=== PATIENT | male | born 1990 | race Caucasian/White ===

== ENCOUNTER 2022-04-19 16:47 | Emergency (ER) | payer MEDICAID, SELFPAY ==
[2022-04-19 16:49] VITALS: BP 113/62; PULSE 73; RESP 18; TEMP 36.2; O2SAT 100; BMI 24.9
[2022-04-19 17:00] VITALS: BP 118/58; PULSE 70; O2SAT 100
--- NOTE | 2022-04-19 17:03 | PC.NURSE ---
ED MD AT BEDSIDE
--- NOTE | 2022-04-19 17:24 | HMH.EDWNDL ---
ED Disposition Clinical Impression: Laceration of left forearm Qualifiers: Encounter type: initial encounter Qualified Code(s): S51.812A - Laceration without foreign body of left forearm, initial encounter Disposition: Home, Self-Care Condition on Discharge: Good Instructions: DI for Laceration Repair Referrals: Provider,Referral, [Primary Care Provider] - - Critical Care Critical Care Time: No Attestation: On 04/19/22, the high probability of a clinically significant, sudden or life threatening deterioration of the following system(s) required my full and direct attention, intervention and personal management. The time I documented below is in addition to time spent performing reported procedures but includes the following listed in this critical care notation. Medical Decision Making - Medical Records Medical records reviewed: Yes: I reviewed the patient's medical records. - Jeffrey Inquiry Pt receiving controlled substance: No Vital Signs: 04/19/22 16:49 Temperature 97.2 F L Temperature Source Oral Pulse Rate [Radial] 73 Respiratory Rate 18 Blood Pressure [Right Arm] 113/62 Blood Pressure Mean [Right Arm] 79 Blood Pressure Source [Right Arm] Automatic Cuff Blood Pressure Position [Right Arm] Sitting 02 Sat by Pulse Oximetry 100 Oxygen Delivery Method Room Air - Reevaluation(s) Time: 17:26 Reevaluation #1: Patient tolerated procedure well. Needs suture removal in 10 days. He was given wound care instructions as well as strict return precautions. Verbalized understanding. Medical Decision Narrative: 31-year-old male presenting with laceration to left forearm. Patient is up-to-date on tetanus. There is no evidence of tendon or vascular involvement. Patient will require suture repair. Wound/Laceration HPI - General Chief Complaint: Wound/Laceration Stated Complaint: AO 04/19@1545@Home Lac L arm Time Seen by Provider: 04/19/22 16:55 Mode of Arrival: Ambulatory Limitations: No Limitations Description of Symptoms (Recalled from ER Triage Doc. by RN): LACERATION TO LEFT FOREARM FROM CHAINSAW - History of Present Illness HPI narrative: 31-year-old male presented to the emergency department laceration to left forearm while using a chainsaw. This occurred just prior to arrival. Patient states that he lost control he kicked back and hit the left forearm. He has a mild laceration to the posterior aspect of the left forearm. No active bleeding at this time. Patient is full range of motion. He is up-to-date on tetanus. No other injuries were sustained. - Related Data Allergies Allergy/AdvReac Type Severity Reaction Status Date / Time Penicillins Allergy Verified 04/19/22 17:05 [facility] History - Hepatitis A Screen Attestation statement:: This patient has been screened for Hepatitis A risk factors. I have reviewed the patient's past medical history: Yes ROS Obtained: Yes All systems reviewed & no additional complaints - Constitutional Constitutional: Denies chills, Denies fever(s) - Cardiovascular Cardiovascular: Denies chest pain - Respiratory Respiratory: Denies dyspnea - Musculoskeletal Musculoskeletal: Reports other (Laceration to left forearm) - Integumentary/Breasts Skin/Breast: Denies rash - Neurologic Neurologic: Denies headache(s) Physical Exam - General General appearance: alert, in no apparent distress - Respiratory Respiratory exam: Present: normal lung sounds bilaterally. Absent: respiratory distress - Cardiovascular Cardiovascular exam: Present: regular rate, normal rhythm - Expanded Upper Extremity Exam Left Comment: Patient has 2 lacerations to the posterior aspect of the left forearm, one is a flap. Superficial in nature. The patient is full range of motion at the elbow, wrist and fingers. Compartment is soft. Neurovascular intact. - Neurological Exam Neurological exam: Present: alert, oriented X3, normal gait. Absent
[2022-04-19 17:39] VITALS: BP 118/58; PULSE 69; RESP 20; TEMP 36.2; O2SAT 100
== END 2022-04-19 17:41 | disposition home or self-care (01) ==
PROVIDERS: Emergency Provider Emergency Medicine
DX: S51.812A Laceration without foreign body of left forearm, initial encounter (principal); W29.3XXA Contact with powered garden and outdoor hand tools and machinery, initial encounter
CPT/HCPCS: 12002; 99282

== ENCOUNTER 2022-04-29 14:53 | Emergency (ER) | payer MEDICAID, SELFPAY ==
[2022-04-29 16:52] VITALS: BP 130/80; PULSE 77; RESP 18; TEMP 36.7; O2SAT 98; BMI 23.5
[2022-04-29 16:53] VITALS: BP 130/80; PULSE 77; RESP 18; TEMP 36.7; O2SAT 98
== END 2022-04-29 16:54 | disposition home or self-care (01) ==
PROVIDERS: Emergency Provider Nurse Practitioner
DX: Z48.02 Encounter for removal of sutures (principal)

== ENCOUNTER 2022-05-02 10:55 | Emergency (ER) | payer MEDICAID, SELFPAY ==
[2022-05-02 11:47] VITALS: BP 110/73; PULSE 60; RESP 15; TEMP 36.8; O2SAT 100; BMI 23.5
[2022-05-02 11:48] VITALS: BP 110/73; PULSE 60; RESP 15; TEMP 36.8
== END 2022-05-02 11:49 | disposition home or self-care (01) ==
LOC: UTC 10:58
PROVIDERS: Emergency Provider Nurse Practitioner Family
DX: S51.812A Laceration without foreign body of left forearm, initial encounter (principal); Z48.02 Encounter for removal of sutures

== ENCOUNTER → 2022-05-07 07:54 | Outpatient (CLI) | payer MEDICAID, SELFPAY ==
[2022-05-07 11:47] LABS: PH,Semen 8.5 (7.3-8.3); Semen Viscosity Normal (Normal); WBCs,Semen Trace
[2022-05-07 11:48] LABS: 3Hr Motility Quality Good Progression (Mod-Rapid); 3Hr Sperm Motility 75 % (50-60); Motility Quality Rapid Progression (Mod-Rapid); Sperm Count 428 mil/mm3 (20-160); Sperm Morphology Normal (Normal); Sperm Motility 85 % (50-90)
== END ==
PROVIDERS: PCP Family Medicine; Visit Provider Nurse Practitioner Obstetrics & Gynecology
DX: Z31.69 Encounter for other general counseling and advice on procreation (principal)
CPT/HCPCS: 89320

== ENCOUNTER 2023-07-04 18:01 | Emergency (ER) | payer MEDICAID, SELFPAY ==
[2023-07-04 18:08] VITALS: BP 127/93; PULSE 82; RESP 15; TEMP 36.7; O2SAT 98; BMI 25.7
--- NOTE | 2023-07-04 18:26 | HMH.EDGENADL ---
Discharge Plan Disposition Patient Disposition: Home, Self-Care Prescriptions Prescriptions: New ibuprofen 800 mg tablet 800 mg PO TID PRN (Reason: pain) 7 Days Qty: 20 0RF cyclobenzaprine 5 mg tablet 5 mg PO TID PRN (Reason: muscle spasm) 5 Days Qty: 15 0RF Referrals Follow up/Referrals: Provider,Referral, [Primary Care Provider] - See instructions Activity Restrictions/Add. Instructions Additional Instructions/Restrictions: Return with any lower extremity paralysis, numbness between your legs, bowel or bladder incontinence, high fevers or other concerns as discussed. Clinical Impressions Clinical Impression: Lumbosacral strain Discharge ED Provider: Thuy Valente General Adult HPI General Chief complaint: PAIN Stated complaint: lower back pain Time Seen by Provider: 07/04/23 18:19 Mode of Arrival: Ambulatory Source of Information: Patient Limitations: No Limitations Description of Symptoms (Recalled from ER Triage Doc. by RN): 32 yo M presents to ED with c/o lower back pain. pt reports symptoms began today around 1300. he was moving equipment and felt a pain in his back. History of Present Illness HPI narrative: 32-year-old male here with lower back pain after a lifting injury at 1 PM today. States he was lifting heavy equipment and he felt a pop in right lower aspect of his back. It is localized without any radiation. No lower extremity paralysis no saddle anesthesia urinary bowel incontinence history of injection drug use within the last several years fevers cancer or any other concerns. Related Data Previous Rx's Medication Instructions Recorded cyclobenzaprine 5 mg tablet 5 mg PO TID PRN muscle spasm 5 07/04/23 days #15 tabs ibuprofen 800 mg tablet 800 mg PO TID PRN pain 7 days #20 07/04/23 tabs Allergies Allergy/AdvReac Type Severity Reaction Status Date / Time Penicillins Allergy Verified 07/04/23 18:21 [facility] Disclaimer: The information contained in this section may have been updated after the patient was seen, as this information can be updated by other users. Social History Smoking Status: Current every day smoker alcohol intake: never current occupational status: other Travel in the last 8 weeks: None ROS Obtained: Yes All systems reviewed & no additional complaints except as documented Physical Exam General General appearance: alert Respiratory Respiratory exam: Present normal lung sounds bilaterally; Absent respiratory distress Cardiovascular Cardiovascular exam: Present regular rate; Absent tachycardia Back Exam Back exam: Present full ROM and other (Normal lower extremity strength with flexion extension at the hip knee dorsiflexion plantarflexion of the ankle normal sensory exam in the lower extremity) Back 1 view image: 1. ttp Neurological Exam Neurological exam: Present alert and oriented X3 Medical Decision Making Jeffrey Inquiry Pt receiving controlled substance: No Vital Signs: 07/04/23 18:08 Temperature 98.0 F Temperature Source Oral Pulse Rate [Left Radial] 82 Respiratory Rate 15 Blood Pressure [Right Arm] 127/93 H Blood Pressure Mean [Right Arm] 104 02 Sat by Pulse Oximetry 98 Oxygen Delivery Method Room Air Orders (Tests/Meds): ED MEDICATIONS Generic Name Dose Route Start Last Admin Trade Name Freq PRN Reason Stop Dose Admin Acetaminophen 1,000 mg 07/04/23 18:24 Acetaminophen 500mg Tab PO 07/04/23 18:25 ONCE ONE Cyclobenzaprine HCl 5 mg 07/04/23 18:24 Cyclobenzaprine 10mg Tablet PO 07/04/23 18:25 ONCE ONE Ibuprofen 800 mg 07/04/23 18:24 Ibuprofen 400 Mg Tablet PO 07/04/23 18:25 ONCE ONE Medical Decision Narrative: 32-year-old male with lower back strain from historical standpoint with physical and history that is not consistent with any red flags to suggest any central nervous system or bony abnormality in the spine or spinal cord. Is not consistent with
[2023-07-04 18:32] VITALS: BP 135/84; PULSE 74; RESP 16; TEMP 36.7
--- NOTE | 2023-07-04 18:33 | PC.NURSE ---
PT HAD NO CLAIM ADJUSTER FOR FLEXERIL PT WAS JUST GONNA TAKE AFTER PICKING UP RX
== END 2023-07-04 18:34 | disposition home or self-care (01) ==
PROVIDERS: Emergency Provider Student in an Organized Health Care Education/Training Program
DX: S39.012A Strain of muscle, fascia and tendon of lower back, initial encounter (principal); F17.210 Nicotine dependence, cigarettes, uncomplicated; X50.0XXA Overexertion from strenuous movement or load, initial encounter
CPT/HCPCS: 99283

== ENCOUNTER 2024-11-14 18:13 | Emergency (ER) | payer SELFPAY ==
--- NOTE | 2024-11-14 18:15 | ED_ITS ---
<Statement entered by Jasmin Abarca DO - 11/14/24 22:46> I was consulted by the JERO, and we discussed the complexity of the problems being addressed. I approved the treatment and management plan for this patient's care in the emergency department, thus performing a substantive portion of the medical decision making. Jasmin Abarca DO Discharge Plan Disposition Chief Complaint: Eye Problems Prescriptions Prescriptions: No Action ibuprofen 800 mg tablet 800 mg PO TID PRN (Reason: pain) 7 Days Qty: 20 0RF cyclobenzaprine 5 mg tablet 5 mg PO TID PRN (Reason: muscle spasm) 5 Days Qty: 15 0RF Referrals Follow up/Referrals: Provider,Referral, MD [Primary Care Provider] - See instructions Activity Restrictions/Add. Instructions Additional Instructions/Restrictions: Please call the parole director/eye doctor at [phone] to follow-up in the clinic in the upcoming days, would recommend follow-up within 48 hours, utilize your ophthalmic ointment 4 times a day for the next 3 to 5 days or until follow-up. Return to the emergency department with any worsening signs or symptoms, or any decreased vision blurry vision. Clinical Impressions Clinical Impression: Corneal abrasion, left Instructions Patient Instructions: DI for Corneal Abrasion Print Language Print Language: Dominican Discharge ED Provider: Jasmin Abarca General Adult HPI General Chief complaint: Eye Problems Stated complaint: LT eye irritaion Time Seen by Provider: 11/14/24 18:15 Mode of Arrival: Ambulatory Source of Information: Patient Limitations: No Limitations History of Present Illness HPI narrative: 33-year-old male presents to the emergency department with a left eye irritation pain, patient states that he was working outside yesterday cutting trees . When he had some left eye irritation, patient was wearing safety glasses, denies any actual foreign body that was noticed in the eye, patient using at home [id number] eyedrops with some relief to his symptomatology. Patient has no other real relevant past medical history takes no other medications at home, triage vitals grossly unremarkable, no history of substance use/abuse. Patient denies fever chills chest pain headache lightheadedness dizziness, no abdominal pain nausea or vomiting, no blurry vision, no double vision, no decreased acuity. No real eye pain, patient denies history of contact use/wear. Onset (ago): day(s) Related Data Previous Rx's ?Medication ?Instructions ?Recorded cyclobenzaprine 5 mg tablet 5 mg PO TID PRN muscle spasm 5 07/04/23 days #15 tabs ibuprofen 800 mg tablet 800 mg PO TID PRN pain 7 days #20 07/04/23 tabs Allergies Allergy/AdvReac Type Severity Reaction Status Date / Time Penicillins Allergy Verified 07/04/23 18:21 [facility] Disclaimer: The information contained in this section may have been updated after the patient was seen, as this information can be updated by other users. Social History (Updated 07/04/23 @ 18:29 by Thuy Valente MD) Smoking Status: Current every day smoker alcohol intake: never current occupational status: other Travel in the last 8 weeks: None Have you lived/traveled outside [place] in past 30 days?: No Contact w/someone who lives/traveled outside [place] past 30 days?: No Exposure to someone with infectious disease in past 14 days?: No Do you have a fever (greater than 100.4 F or 38 C)?: No Have you tested positive for COVID-19: No Exposed to someone with COVID-19 in past 14 days?: No Do you have a sore throat?: No Do you have a cough?: No Do you have any weakness?: No Do you have any diarrhea?: No Are you experiencing any unusual bleeding?: No Do you have any muscle aches/pain?: No Do you have any abdominal pain?: No Are you experiencing loss of taste or smell?: No Other Medical History Have you received the Flu Vaccine for this season: Yes Have you received the Pneumonia Vaccine: No ROS Obtained: Yes All systems reviewed & no additional complaints except as documented Physical Exam General General appearance: alert and in no apparent distress Head Head exam: atraumatic and normocephalic Eye Eye exam: Present PERRL, EOMI, conjunctival injection and other (There is some mild conjunctival injection, scleral irritation and redness and tearing around the patient's left eye, no pain with extraocular movements) ENT ENT exam: Present mucous membranes moist Neck Neck exam: Present normal inspection Chest Chest inspection: Present normal inspection and symmetric chest wall rise Respiratory Respiratory exam: Present normal lung sounds bilaterally; Absent respiratory distress Cardiovascular Cardiovascular exam: Present regular rate and normal rhythm Abdominal Exam Abdominal exam: Present soft; Absent tenderness Extremities Exam Extremities exam: Present normal inspection Neurological Exam Neurological exam: Present alert and oriented X3 Psychiatric Psychiatric exam: Present normal affect Skin Skin exam: Present warm and dry Medical Decision Making Medical Records Medical records reviewed: Yes I reviewed the patient's medical records. Screening: Per USPSTF and CDC recommendations, given the prevalence of disease in our region, it is our hospital?s policy to screen for HIV and viral Hepatitis for all patients aged 18 and over and those with ongoing risk factors. Jeffrey Inquiry Pt receiving controlled substance: No Jeffrey was queried for this patient: No Vital Signs: 11/14/24 18:19 Temperature 98.1 F Temperature Source Oral Pulse Rate [Left Radial] 108 H Respiratory Rate 19 Blood Pressure [Right Arm] 160/96 H Blood Pressure Mean [Right Arm] 117 Blood Pressure Source [Right Arm] Automatic Cuff Blood Pressure Position [Right Arm] Supine 02 Sat by Pulse Oximetry 99 Oxygen Delivery Method Room Air Orders (Tests/Meds): ED MEDICATIONS Discontinued Medications Generic Name Dose Route Start Last Admin Trade Name Freq PRN Reason Stop Dose Admin Fluorescein Sodium 1 mg 11/14/24 18:31 11/14/24 18:32 Fluorescein Sodium 1mg Strip OP 11/14/24 18:32 1 mg ONCE ONE Administration Tetracaine HCl 0 ml 11/14/24 18:31 11/14/24 18:32 Tetracaine 0.5% Opth Maci 15ml OP 11/14/24 18:32 15 ml ONCE ONE Administration ORDERS Category Date Time Status HIV Combo Stat Lab 11/14/24 18:23 Ordered Hepatitis C Ab Qual. W/ RFX Stat Lab 11/14/24 18:23 Ordered Medical Decision Narrative: 33-year-old male presents to the emergency department with left eye irritation, differential diagnose include but not limited to corneal abrasion, ocular foreign body, keratitis, Discussed patient case with him. Dr. Abarca Performed fluorescein dye test, after tetracaine ophthalmic drops x 2 were applied to the patient's eye, there is a small linear area of fluorescein dye uptake, negative Sidel sign, positive for corneal abrasion around the 9 PM area of the patient's cornea, tetracaine improve the patient's symptomatology, will give the patient erythromycin p.o. 0.5 g ophthalmic ointment to take as prescribed 4 times daily for 3 to 5 days.. Patient will follow-up with medical center representative/parole director in the upcoming days, strict ED return precautions given. Patient voiced understanding agree with current treatment plan/discharge plan. Critical Care Critical Care Time Critical Care Time: No
[2024-11-14 18:19] VITALS: BP 160/96; PULSE 108; RESP 19; TEMP 36.7; O2SAT 99; BMI 24.3
[2024-11-14] MEDS: TETRACAINE 0.5% OPTH SOL 15ML OP (18:32)
[2024-11-14] MEDS: FLUORESCEIN SODIUM 1MG STRIP 1 MG OP (18:32)
[2024-11-14] MEDS: ERYTHROMYCIN BASE 1 GM OINT...G. OP (18:50)
[2024-11-14 18:55] VITALS: BP 138/99; PULSE 83; RESP 18; TEMP 36.8; O2SAT 98
== END 2024-11-14 18:55 | disposition home or self-care (01) ==
PROVIDERS: Emergency Provider Emergency Medicine
DX: S05.02XA Injury of conjunctiva and corneal abrasion without foreign body, left eye, initial encounter (principal); H57.12 Ocular pain, left eye; Z72.0 Tobacco use; X58.XXXA Exposure to other specified factors, initial encounter; Y93.89 Activity, other specified; Y92.9 Unspecified place or not applicable
CPT/HCPCS: 99283